=== PATIENT | male | born 1940 | race African-American/Black ===

== ENCOUNTER 2018-04-18 09:41 | Observation (INO) | payer MEDICARE, MEDICAID ==
[~2018-04-18] VITALS: Ht 182.9 cm; Wt 83.6 kg
[~2018-04-18 09:41] MED LIST: ATORVASTATIN CA20 MG PO; AUGMENTIN875TAB PO; BAYER ASPIRIN325 M1 PO; BL ASPIRIN325 MG PO; CELEBREX200 M1; CIALIS10 MG PO; COMBIGAN0.2 MG/0.5 OP; DICLOFENAC SODI75 MG PO; GLUCOTROL5 MG PO; HYDREA500 MG PO; LISINOP/HCTZ1 TA1 PO; LISINOP/HCTZ1 TAB PO; LISINOPRIL10 MG PO; LOPID600 MG PO; MECLIZINE25 MG PO; MULT VITAMI1 PO; NORVASC10 M1 PO
[2018-04-18 11:01] LABS: IMMATURE GRANULOCYTES 0.6 % (0.0-5.0); MEAN CORPUSCULAR HGB 37.4 pG CALC (26.0-32.0); MEAN CORPUSCULAR HGB CONC 33.1 g/L CALC (32.0-36.0); NEUT# 2.33 thou/uL (1.82-7.42); RED BLOOD COUNT 3.18 mill/uL (4.70-6.10); RED CELL DISTRI WIDTH 13.6 % (11.5-15.5)
[2018-04-18 11:02] LABS: HEMOGLOBIN 11.9 g/dl (14.0-18.0); MEAN CELL VOLUME 113.2 fL CALC (80.0-100.0)
[2018-04-18 11:41] LABS: ANION GAP 13 (6-22 (CALC)); BUN 15 mg/dL (8-23); BUN/CREATININE RATIO 18 (12-20 (CALC)); CARBON DIOXIDE 26 mmol/l (22-30); CHLORIDE 104 mmol/l (95-108); CREATININE 0.8 mg/dL (0.7-1.3); GFR > 60 ML/MIN (>=60 (CALC)); GFR FOR AFR.AMER. > 60 ML/MIN (>=60 (CALC)); POTASSIUM 4.7 mmol/l (3.5-5.1); SODIUM 138 mmol/l (137-146)
[2018-04-18 14:00] VITALS: BP 157/78
[2018-04-18 17:03] VITALS: BP 145/76
[2018-04-18 20:00] VITALS: BP 156/83
[2018-04-19 00:39] VITALS: BP 148/75
[2018-04-19 04:55] VITALS: BP 144/73
[2018-04-19 06:43] LABS: HEMATOCRIT 35.5 % (39.0-50.0); HEMOGLOBIN 11.8 g/dl (14.0-18.0); IMMATURE GRANULOCYTES 0.3 % (0.0-5.0); MEAN CELL VOLUME 109.9 fL CALC (80.0-100.0); MEAN CORPUSCULAR HGB 36.5 pG CALC (26.0-32.0); MEAN CORPUSCULAR HGB CONC 33.2 g/L CALC (32.0-36.0); NEUT# 2.45 thou/uL (1.82-7.42); RED BLOOD COUNT 3.23 mill/uL (4.70-6.10); RED CELL DISTRI WIDTH 13.5 % (11.5-15.5)
[2018-04-19 06:58] LABS: ALBUMIN 4.3 g/dL (3.2-5.0); ALKALINE PHOSPHATASE 72 u/l (38-126); AMYLASE 89 u/l (30-110); ANION GAP 13 (6-22 (CALC)); BILIRUBIN, TOTAL 0.4 mg/dL (0.0-1.4); BUN 16 mg/dL (8-23); BUN/CREATININE RATIO 18 (12-20 (CALC)); CARBON DIOXIDE 28 mmol/l (22-30); CHLORIDE 104 mmol/l (95-108); CREATININE 0.9 mg/dL (0.7-1.3); GFR > 60 ML/MIN (>=60 (CALC)); GFR FOR AFR.AMER. > 60 ML/MIN (>=60 (CALC)); LIPASE 84 u/l (23-300); MAGNESIUM 2.2 mg/dL (1.6-2.3); POTASSIUM 4.4 mmol/l (3.5-5.1); SGOT/AST 26 u/l (19-48); SODIUM 140 mmol/l (137-146); TOTAL PROTEIN 6.8 g/dL (6.3-8.2)
[2018-04-19 07:37] VITALS: BP 140/74
[2018-04-19 11:30] VITALS: BP 133/72
== END 2018-04-19 15:35 | disposition home or self-care (01) ==
LOC: ED 09:41 → ED-I 12:18 → ED 12:31 → MS2 12:33
PROVIDERS: Family Medicine; ADMIT Internal Medicine Nephrology; ATTEND Internal Medicine Nephrology
DX: R42 Dizziness and giddiness (principal); R00.2 Palpitations; R07.9 Chest pain, unspecified; E11.9 Type 2 diabetes mellitus without complications; I10 Essential (primary) hypertension; E78.5 Hyperlipidemia, unspecified; D75.9 Disease of blood and blood-forming organs, unspecified; D47.3 Essential (hemorrhagic) thrombocythemia; Z79.899 Other long term (current) drug therapy; Z79.84 Long term (current) use of oral hypoglycemic drugs

== ENCOUNTER → 2018-04-26 | Outpatient (REF) | payer MEDICARE, MEDICAID | END | disposition home or self-care (01) | LOC: LAB 08:48 | PROVIDERS: ATTEND Family Medicine | DX: E83.30 Disorder of phosphorus metabolism, unspecified (principal) ==

== ENCOUNTER 2020-09-22 09:23 | Observation (INO) | payer MEDICARE, MEDICAID ==
[2020-09-22] VITALS (12 sets, daily range): BP systolic 119–160; BP diastolic 53–104
[2020-09-22 10:49] LABS: HEMATOCRIT 34.8 % (39.0-50.0); HEMOGLOBIN 10.9 g/dl (14.0-18.0); IMMATURE GRANULOCYTES 0.2 % (0.0-5.0); MEAN CELL VOLUME 113.4 fL CALC (80.0-100.0); MEAN CORPUSCULAR HGB 35.5 pG CALC (26.0-32.0); MEAN CORPUSCULAR HGB CONC 31.3 g/dL CAL (32.0-36.0); NEUT# 3.15 thou/uL (1.82-7.42); RED BLOOD COUNT 3.07 mill/uL (4.70-6.10); RED CELL DISTRI WIDTH 16.8 % (11.5-15.5)
[2020-09-22 11:07] LABS: ACT PARTIAL THROMBO TIME 23.9 SECONDS (20.0-32.5); PROTHROMBIN TIME 10.5 SECONDS (9.0-12.5)
[2020-09-22 11:08] LABS: ALBUMIN 4.3 g/dL (3.2-5.0); ALKALINE PHOSPHATASE 59 u/l (38-126); ANION GAP 14 (6-22 (CALC)); BILIRUBIN, TOTAL 0.4 mg/dL (0.0-1.4); BUN 24 mg/dL (8-23); BUN/CREATININE RATIO 23 (12-20 (CALC)); CARBON DIOXIDE 24 mmol/l (22-30); CHLORIDE 103 mmol/l (95-108); GFR > 60 ML/MIN (>=60 (CALC)); GFR FOR AFR.AMER. > 60 ML/MIN (>=60 (CALC)); LIPASE 103 u/l (23-300); MAGNESIUM 2.3 mg/dL (1.6-2.3); POTASSIUM 4.4 mmol/l (3.5-5.1); SGOT/AST 31 u/l (19-48); SODIUM 137 mmol/l (137-146); TOTAL PROTEIN 7.2 g/dL (6.3-8.2)
[2020-09-22 11:37] LABS: TSH, 3RD GENERATION 2.06 uIU/mL (0.47 - 4.68)
[2020-09-22 14:19] LABS: URINE BILIRUBIN - DIPSTICK NEGATIVE (NEGATIVE); URINE BLOOD DIPSTICK NEGATIVE (NEGATIVE); URINE COLOR YELLOW; URINE GLUCOSE - DIPSTICK NEGATIVE (NEGATIVE); URINE KETONE NEGATIVE (NEGATIVE); URINE LEUK ESTERASE NEGATIVE (NEGATIVE); URINE PROTEIN - DIPSTICK NEGATIVE (NEG-TRACE); URINE UROBILINOGEN - DIPSTICK 0.2 E.U./dL (0.2)
[2020-09-22 14:25] LABS: URINE NITRITE - DIPSTICK NEGATIVE (Negative)
[2020-09-22] MEDS ORDERED: HYDREA500 MG PO ×2 (15:45)
[2020-09-22] MEDS ORDERED: COMBIGAN0.2 MG/0.5 OU (16:43)
[2020-09-22] MEDS ORDERED: CIALIS5 MG PO (16:43)
[2020-09-23] VITALS (14 sets, daily range): BP systolic 87–146; BP diastolic 53–76
[2020-09-23 06:34] LABS: CHOLESTEROL HDL RATIO 4.3 (<4.4 (CALC)); MAGNESIUM 2.1 mg/dL (1.6-2.3)
[2020-09-23] MEDS ORDERED: ELIQUIS5 MG PO (14:19)
[2020-09-23] MEDS ORDERED: FLECAINIDE50 MG PO (14:19)
[2020-09-23] MEDS ORDERED: LOPRESSOR25 MG PO (14:21)
[2020-09-23] MEDS ORDERED: TAM75CAP PO (14:21)
== END 2020-09-23 16:05 | disposition home or self-care (01) ==
LOC: ED 09:23 → ED-I 11:50 → ED 12:02 → ICU 12:03
PROVIDERS: ADMIT Internal Medicine; ATTEND Internal Medicine
DX: I48.19 Other persistent atrial fibrillation (principal); J10.1 Influenza due to other identified influenza virus with other respiratory manifestations; I10 Essential (primary) hypertension; E11.40 Type 2 diabetes mellitus with diabetic neuropathy, unspecified; D47.3 Essential (hemorrhagic) thrombocythemia; D53.9 Nutritional anemia, unspecified; E78.5 Hyperlipidemia, unspecified; H40.9 Unspecified glaucoma; Z79.84 Long term (current) use of oral hypoglycemic drugs; Z20.822 Contact with and (suspected) exposure to COVID-19
CPT/HCPCS: J1650

== ENCOUNTER 2020-10-05 01:02 | Emergency (ER) | payer MEDICARE, MEDICAID ==
[~2020-10-05] VITALS: Ht 182.9 cm; Wt 81.0 kg
[~2020-10-05 01:02] MED LIST changes: +CIALIS5 MG PO; +COMBIGAN0.2 MG/0.5 OU; +ELIQUIS5 MG PO; +FLECAINIDE50 MG PO; +LOPRESSOR25 MG PO; +TAM75CAP PO
[2020-10-05 02:11] LABS: HEMATOCRIT 30.7 % (39.0-50.0); HEMOGLOBIN 9.8 g/dl (14.0-18.0); IMMATURE GRANULOCYTES 0.5 % (0.0-5.0); MEAN CORPUSCULAR HGB 35.8 pG CALC (26.0-32.0); MEAN CORPUSCULAR HGB CONC 31.9 g/dL CAL (32.0-36.0); NEUT# 3.04 thou/uL (1.82-7.42); RED BLOOD COUNT 2.74 mill/uL (4.70-6.10); RED CELL DISTRI WIDTH 16.5 % (11.5-15.5)
[2020-10-05 02:17] LABS: ALBUMIN 4.3 g/dL (3.2-5.0); ALKALINE PHOSPHATASE 59 u/l (38-126); ANION GAP 13 (6-22 (CALC)); BILIRUBIN, TOTAL 0.4 mg/dL (0.0-1.4); BUN 32 mg/dL (8-23); BUN/CREATININE RATIO 31 (12-20 (CALC)); CARBON DIOXIDE 25 mmol/l (22-30); CHLORIDE 100 mmol/l (95-108); CREATININE 1.1 mg/dL (0.7-1.3); GFR > 60 ML/MIN (>=60 (CALC)); GFR FOR AFR.AMER. > 60 ML/MIN (>=60 (CALC)); POTASSIUM 4.5 mmol/l (3.5-5.1); SGOT/AST 23 u/l (19-48); SODIUM 134 mmol/l (137-146); TOTAL PROTEIN 6.7 g/dL (6.3-8.2)
[2020-10-05 05:35] VITALS: BP 128/65
== END 2020-10-05 05:35 | disposition home or self-care (01) ==
LOC: ED 01:02
PROVIDERS: Family Medicine
DX: I10 Essential (primary) hypertension (principal); E11.9 Type 2 diabetes mellitus without complications; I48.91 Unspecified atrial fibrillation; Z79.84 Long term (current) use of oral hypoglycemic drugs

== ENCOUNTER 2021-01-06 17:24 | Emergency (ER) | payer MEDICARE, MEDICAID ==
[~2021-01-06] VITALS: Ht 182.9 cm; Wt 82.0 kg
[2021-01-06 19:03] LABS: IMMATURE GRANULOCYTES 5.3 % (0.0-5.0); MEAN CELL VOLUME 106.7 fL CALC (80.0-100.0); MEAN CORPUSCULAR HGB 34.3 pG CALC (26.0-32.0); MEAN CORPUSCULAR HGB CONC 32.1 g/dL CAL (32.0-36.0); NEUT# 3.81 thou/uL (1.82-7.42); RED BLOOD COUNT 1.78 mill/uL (4.70-6.10); RED CELL DISTRI WIDTH 16.9 % (11.5-15.5)
[2021-01-06 19:15] LABS: ALBUMIN 4.3 g/dL (3.2-5.0); ANION GAP 14 (6-22 (CALC)); BUN 28 mg/dL (8-23); BUN/CREATININE RATIO 22 (12-20 (CALC)); CARBON DIOXIDE 27 mmol/l (22-30); CHLORIDE 98 mmol/l (95-108); CREATININE 1.3 mg/dL (0.7-1.3); GFR 53 ML/MIN (>=60 (CALC)); GFR FOR AFR.AMER. > 60 ML/MIN (>=60 (CALC)); POTASSIUM 4.9 mmol/l (3.5-5.1); SGOT/AST 30 u/l (19-48); SODIUM 134 mmol/l (137-146); TOTAL PROTEIN 7.2 g/dL (6.3-8.2)
[2021-01-06 19:16] LABS: ALKALINE PHOSPHATASE 105 u/l (38-126); BILIRUBIN, TOTAL 0.7 mg/dL (0.0-1.4)
[2021-01-06 19:27] LABS: HEMOGLOBIN 6.1 g/dl (14.0-18.0)
[2021-01-06 20:40] VITALS: BP 147/67
[2021-01-06 21:04] VITALS: BP 143/65
[2021-01-06 22:05] VITALS: BP 128/62
[2021-01-06 23:44] VITALS: BP 144/62
== END 2021-01-06 23:30 | disposition short-term general hospital (02) ==
LOC: ED 17:24
PROVIDERS: Family Medicine
PROC: 30233N1 Transfusion of Nonautologous Red Blood Cells into Peripheral Vein, Percutaneous Approach (ICD-10-PCS; principal; 2021-01-06)
DX: D64.9 Anemia, unspecified (principal); E11.9 Type 2 diabetes mellitus without complications; I10 Essential (primary) hypertension; E78.5 Hyperlipidemia, unspecified; I48.91 Unspecified atrial fibrillation; Z79.01 Long term (current) use of anticoagulants
CPT/HCPCS: P9016